=== PATIENT | female | born 1970 | race Two or more races ===

== ENCOUNTER 2022-05-15 16:17 | Emergency (ER) | payer MEDICAID ==
[~2022-05-15] VITALS: Ht 154.9 cm; Wt 75.0 kg
[2022-05-15] MEDS ORDERED: TraMADol HCL 50 MG TABLET PO ONE (18:30)
[2022-05-15] MEDS ORDERED: IBUP-1492 PO (19:04)
[2022-05-15 19:23] VITALS: BP 137/77
== END 2022-05-15 19:25 | disposition home or self-care (01) ==
LOC: EMS 16:23
DX: S82.402A Unspecified fracture of shaft of left fibula, initial encounter for closed fracture (principal); Z90.49 Acquired absence of other specified parts of digestive tract; X58.XXXA Exposure to other specified factors, initial encounter; Y93.89 Activity, other specified; Y92.89 Other specified places as the place of occurrence of the external cause; Y99.8 Other external cause status
CPT/HCPCS: 29515; 99284; 73590-TC; 73610-TC; Z7502; Z7610